=== PATIENT | female | born 1960 | race Caucasian/White ===

== ENCOUNTER 2018-04-23 13:02 | Emergency (ER) | payer MEDICAID, OTHER ==
[~2018-04-23] VITALS: Ht 175.3 cm; Wt 104.3 kg
[2018-04-23] MEDS ORDERED: IBUPROFEN 400 MG TABLET ONE (13:27)
[2018-04-23] MEDS ORDERED: IBUPROFEN 400 MG TABLET PO ONE (13:30)
--- NOTE | 2018-04-23 15:13 | NUR ---
MSE COMPLETED, COLLIES TO LEFT WRIST PLACED, ACI/RX X4 GIVEN. PT D/C'D HOME, AMBULATED W/O DIFF/TOOK ALL BELONGINGS.
[2018-04-23 15:14] VITALS: BP 110/62
== END 2018-04-23 15:15 | disposition home or self-care (01) ==
LOC: ER 13:06
DX: S69.92XA Unspecified injury of left wrist, hand and finger(s), initial encounter (principal); S39.92XA Unspecified injury of lower back, initial encounter; V49.9XXA Car occupant (driver) (passenger) injured in unspecified traffic accident, initial encounter; Y93.89 Activity, other specified; Y92.410 Unspecified street and highway as the place of occurrence of the external cause; Y99.8 Other external cause status
CPT/HCPCS: 29125; 72100; 73130; 99284; A4663